=== PATIENT | female | born 1990 | race Caucasian/White ===

== ENCOUNTER 2017-05-03 07:42 | Emergency (ER) | payer SELFPAY ==
[~2017-05-03] VITALS: Wt 104.3 kg
[~2017-05-03 07:42] MED LIST: ANAPROX DS550 MG PO; CELEXA20 MG PO; FLEXERIL10 MG PO; GLUCOPHAGE500 MG PO; MOTRIN800 MG PO; NKHM; NORFLEX100 MG PO; PREDNICOT20 MG PO; ROBAXIN750 MG PO; TRAMADOL HCL50 MG PO; VOLTAREN50 M1 PO; VOLTAREN50 MG PO; ZOFRAN4 MG PO; [UNRECOGNIZED DRUG - REMARK]; [UNRECOGNIZED DRUG - REMARK]
[2017-05-03] MEDS ORDERED: PREDNISONE50 MG PO (09:34)
== END 2017-05-03 09:38 | disposition home or self-care (01) ==
LOC: ED 07:42
DX: M54.32 Sciatica, left side (principal); R51 Headache; F17.200 Nicotine dependence, unspecified, uncomplicated

== ENCOUNTER 2017-09-14 16:09 | Emergency (ER) | payer OTHER ==
[~2017-09-14] VITALS: Ht 170.1 cm; Wt 104.3 kg
[~2017-09-14 16:09] MED LIST changes: +PREDNISONE50 MG PO
[2017-09-14] MEDS ORDERED: PREDNISONE20 M1 PO (16:26)
== END 2017-09-14 17:00 | disposition home or self-care (01) ==
LOC: ED 16:09
DX: R59.1 Generalized enlarged lymph nodes (principal); F17.200 Nicotine dependence, unspecified, uncomplicated

== ENCOUNTER 2018-11-02 18:35 | Emergency (ER) | payer SELFPAY ==
[~2018-11-02] VITALS: Ht 170.1 cm; Wt 99.8 kg
[~2018-11-02 18:35] MED LIST changes: +PREDNISONE20 M1 PO
== END 2018-11-02 19:12 | disposition home or self-care (01) ==
LOC: ED 18:35
DX: H10.9 Unspecified conjunctivitis (principal)

== ENCOUNTER 2018-12-05 13:33 | Emergency (ER) | payer SELFPAY ==
[~2018-12-05] VITALS: Ht 170.1 cm; Wt 104.3 kg
--- NOTE | ~2018-12-05 | EKG ---
[place], [place] ELECTROCARDIOGRAM REPORT NAME: EMELINA MORRISSEY UNIT #: [id number] ROOM: DOCTOR: RAMBO DRAFT REPORT BIRTHDATE: [birth year] [facility] Test Date: 2018-12-05 Test Time: 13:38:12 Pat Name: EMELINA MORRISSEY Department: Room: Gender: F Technology Assistant: : 1990 Requested By: REKHA VAUGHAN Order Number: [id number] Reading MD: Mykel Chicas MD Measurements Intervals [place] Rate: 89 P: 24 ME: 177 QRS: 50 QRSD: 88 T: 44 QT: 365 QTc: 445 Interpretive Statements Sinus rhythm Baseline wander in lead(s) V6 No previous ECG available for comparison Electronically Signed On 12-05-2018 17:29:14 PST by Mykel Chicas MD CM:EKGRPT:ELECTROCARDIOGRAM REPORT [id number] REKHA MORELOS DRAFT REPORT REKHA VAUGHAN DO
[2018-12-05 13:56] LABS: BASO % 0.6 % (0.0-1.0); EOS # 0.1 10*3/uL (0.0-0.4); EOS % 1.4 % (1.0-4.0); HEMATOCRIT 40.7 % (37.0-47.0); LYMPH # 2.3 10*3/uL (1.3-4.4); LYMPH % 31.7 % (27.0-41.0); MEAN CELL VOLUME 86.6 fl (81.0-99.0); MEAN CORPUSCULAR HGB 29.8 pg (27.0-31.0); MEAN CORPUSCULAR HGB CONC 34.4 g/dl (33.0-37.0); MEAN PLATELET VOLUME 10.4 fl (9.6-12.3); MONO # 0.5 10*3/uL (0.1-1.0); MONO % 7.1 % (3.0-9.0); NEUT # 4.2 10*3/uL (2.3-7.9); NEUT % 58.9 % (47.0-73.0); PLATELET COUNT AUTOMATED 284 10*3/uL (130-400); RED CELL DISTRI WIDTH 12.5 % (0-14.5); WHITE BLOOD COUNT 7.2 10*3/uL (4.8-10.8)
[2018-12-05 14:41] LABS: ACT PARTIAL THROMBO TIME 23.1 SECONDS (20.8-31.5)
[2018-12-05 14:45] LABS: ALBUMIN 3.6 gm/dl (3.1-4.5); ALKALINE PHOSPHATASE 46 U/L (45-117); BUN 11 mg/dl (7-24); CHLORIDE 109 mmol/L (98-107); CREATININE 0.61 mg/dL (0.55-1.02); POTASSIUM 3.7 mmol/L (3.5-5.1); SGOT/AST 14 IU/L (3-35); SGPT/ALT 36 U/L (12-78); SODIUM 141 mmol/L (136-145); TOTAL PROTEIN 6.9 gm/dL (6.4-8.2)
[2018-12-05 15:00] LABS: TROPONIN I < 0.015 ng/ml (<0.045)
[2018-12-05] MEDS ORDERED: AUGMENTIN 875875 MG PO (15:52)
[2019-01-15] MEDS ORDERED: CLARITIN10 MG PO (06:02)
[2019-01-15] MEDS ORDERED: AMOXICILLIN500 M2 PO (06:02)
== END 2018-12-05 16:02 | disposition home or self-care (01) ==
LOC: ED 13:33
PROVIDERS: Emergency Medicine
DX: H66.93 Otitis media, unspecified, bilateral (principal); R51 Headache; R06.02 Shortness of breath; R07.9 Chest pain, unspecified; F17.200 Nicotine dependence, unspecified, uncomplicated

== ENCOUNTER 2019-04-29 14:59 | Emergency (ER) | payer OTHER ==
[~2019-04-29] VITALS: Ht 170.1 cm; Wt 113.4 kg
[~2019-04-29 14:59] MED LIST changes: +AMOXICILLIN500 M2 PO; +AUGMENTIN 875875 MG PO; +CLARITIN10 MG PO
== END 2019-04-29 17:28 | disposition home or self-care (01) ==
LOC: ED 14:59
DX: S82.402A Unspecified fracture of shaft of left fibula, initial encounter for closed fracture (principal); X50.1XXA Overexertion from prolonged static or awkward postures, initial encounter; Y93.89 Activity, other specified; Y92.89 Other specified places as the place of occurrence of the external cause; Y99.8 Other external cause status

== ENCOUNTER 2019-11-08 11:07 | Emergency (ER) | payer SELFPAY ==
[~2019-11-08] VITALS: Ht 172.7 cm; Wt 120.7 kg
[2019-11-08 11:36] LABS: BILIRUBIN NEGATIVE (NEGATIVE); BLOOD NEGATIVE (NEGATIVE); CLARITY SL CLOUDY (CLEAR); COLOR YELLOW (YELLOW); GLUCOSE NEGATIVE (NEGATIVE); KETONE NEGATIVE (NEGATIVE); LEUKO ESTERASE NEGATIVE (NEGATIVE); NITRITE NEGATIVE (NEGATIVE); SPECIFIC GRAVITY 1.015 (1.005-1.030); UROBILINOGEN 0.2 E.U./dl (0.2-1.0)
[2019-11-08 11:53] LABS: BACTERIA 2+; WBC 0-2 wbc/hpf (0-5)
== END 2019-11-08 13:15 | disposition home or self-care (01) ==
LOC: ED 11:07
PROVIDERS: Nurse Practitioner Family
DX: N91.2 Amenorrhea, unspecified (principal); R79.1 Abnormal coagulation profile; Z32.02 Encounter for pregnancy test, result negative

== ENCOUNTER 2022-02-22 20:36 | Emergency (ER) | payer OTHER ==
[~2022-02-22] VITALS: Ht 172.7 cm; Wt 113.4 kg
== END 2022-02-22 23:10 | disposition left against medical advice (07) ==
LOC: ED 20:36
DX: R07.81 Pleurodynia (principal)

== ENCOUNTER 2022-10-15 09:42 | Emergency (ER) | payer OTHER ==
[~2022-10-15] VITALS: Ht 170.1 cm; Wt 117.9 kg
== END 2022-10-15 12:45 | disposition home or self-care (01) ==
LOC: ED 09:42
DX: R51.9 Headache, unspecified (principal)

== ENCOUNTER → 2022-12-29 | Outpatient (CLI) | payer OTHER ==
[2022-12-29 12:05] LABS: BASO # 0.1 10*3/uL (0.0-0.1); BASO % 0.6 % (0.0-1.0); EOS # 0.3 10*3/uL (0.0-0.4); EOS % 2.9 % (1.0-4.0); HEMATOCRIT 41.6 % (37.0-47.0); LYMPH # 1.9 10*3/uL (1.3-4.4); LYMPH % 22.5 % (27.0-41.0); MEAN CELL VOLUME 85.4 fl (81.0-99.0); MEAN CORPUSCULAR HGB 28.7 pg (27.0-31.0); MEAN CORPUSCULAR HGB CONC 33.7 g/dl (33.0-37.0); MEAN PLATELET VOLUME 10.2 fl (9.6-12.3); MONO # 0.4 10*3/uL (0.1-1.0); NEUT # 5.8 10*3/uL (2.3-7.9); NEUT % 68.6 % (47.0-73.0); PLATELET COUNT AUTOMATED 330 10*3/uL (130-400); RED BLOOD COUNT 4.87 10*6/uL (4.10-5.10); WHITE BLOOD COUNT 8.5 10*3/uL (4.8-10.8)
[2022-12-29 12:23] LABS: ALKALINE PHOSPHATASE 53 U/L (46-116); BUN 10 mg/dl (9-23); CHLORIDE 107 mmol/L (98-107); CHOLESTEROL 160 mg/dL (<200); LDL CHOLESTEROL 103 mg/dL (9-159); POTASSIUM 3.7 mmol/L (3.4-5.1); SGPT/ALT 25 U/L (10-49); THYROID STIM HORMONE (HS) 1.018 uIU/ml (0.550-4.780); TOTAL PROTEIN 6.7 gm/dL (6.0-8.0); TRIGLYCERIDES 108 mg/dl (<150)
== END | disposition home or self-care (01) ==
LOC: LAB 11:45
PROVIDERS: ATTEND Nurse Practitioner
DX: Z51.81 Encounter for therapeutic drug level monitoring (principal); Z79.899 Other long term (current) drug therapy

== ENCOUNTER 2023-06-13 08:48 | Emergency (ER) | payer OTHER ==
[~2023-06-13] VITALS: Wt 125.2 kg
== END 2023-06-13 11:16 | disposition home or self-care (01) ==
LOC: ED 08:48
DX: S63.502A Unspecified sprain of left wrist, initial encounter (principal); Z79.2 Long term (current) use of antibiotics; Z79.899 Other long term (current) drug therapy; W19.XXXA Unspecified fall, initial encounter; Y93.89 Activity, other specified; Y92.89 Other specified places as the place of occurrence of the external cause; Y99.8 Other external cause status

== ENCOUNTER 2023-09-08 11:31 | Emergency (ER) | payer OTHER ==
[~2023-09-08] VITALS: Wt 132.9 kg
[2023-09-08 12:18] LABS: BASO % 0.8 % (0.0-1.0); EOS # 0.1 10*3/uL (0.0-0.4); EOS % 1.8 % (1.0-4.0); HEMATOCRIT 40.8 % (37.0-47.0); LYMPH # 1.4 10*3/uL (1.3-4.4); LYMPH % 28.7 % (27.0-41.0); MEAN CELL VOLUME 88.1 fl (81.0-99.0); MEAN CORPUSCULAR HGB 29.8 pg (27.0-31.0); MEAN CORPUSCULAR HGB CONC 33.8 g/dl (33.0-37.0); MONO # 0.3 10*3/uL (0.1-1.0); MONO % 6.1 % (3.0-9.0); NEUT # 3.1 10*3/uL (2.3-7.9); NEUT % 62.2 % (47.0-73.0); PLATELET COUNT AUTOMATED 263 10*3/uL (130-400); RED BLOOD COUNT 4.63 10*6/uL (4.10-5.10); RED CELL DISTRI WIDTH 14.4 % (0-14.5); WHITE BLOOD COUNT 4.9 10*3/uL (4.8-10.8)
[2023-09-08 12:29] LABS: ACT PARTIAL THROMBO TIME 25.4 SECONDS (20.0-32.1)
[2023-09-08 12:58] LABS: ALKALINE PHOSPHATASE 54 U/L (46-116); BUN 8 mg/dl (9-23); CHLORIDE 109 mmol/L (98-107); LIPASE 24 U/L (12-53); POTASSIUM 3.8 mmol/L (3.4-5.1); SGPT/ALT 53 U/L (10-49); TOTAL PROTEIN 6.4 gm/dL (6.0-8.0)
== END 2023-09-08 14:20 | disposition home or self-care (01) ==
LOC: ED 11:31
PROVIDERS: Nurse Practitioner Family
DX: K64.9 Unspecified hemorrhoids (principal); R10.11 Right upper quadrant pain

== ENCOUNTER → 2023-09-19 | Outpatient (CLI) | payer OTHER ==
[2023-09-19 16:22] LABS: HEMATOCRIT 42.9 % (37.0-47.0); MEAN CELL VOLUME 88.3 fl (81.0-99.0); MEAN CORPUSCULAR HGB 30.7 pg (27.0-31.0); MEAN CORPUSCULAR HGB CONC 34.7 g/dl (33.0-37.0); MEAN PLATELET VOLUME 9.8 fl (9.6-12.3); RED BLOOD COUNT 4.86 10*6/uL (4.10-5.10); RED CELL DISTRI WIDTH 14.2 % (0-14.5); WHITE BLOOD COUNT 5.7 10*3/uL (4.8-10.8)
[2023-09-19 17:06] LABS: ALKALINE PHOSPHATASE 61 U/L (46-116); BUN 10 mg/dl (9-23); CHLORIDE 107 mmol/L (98-107); CHOLESTEROL 159 mg/dL (<200); LDL CHOLESTEROL 97 mg/dL (9-159); LIPASE 24 U/L (12-53); POTASSIUM 3.7 mmol/L (3.4-5.1); SGPT/ALT 53 U/L (5-49); TOTAL PROTEIN 7.2 gm/dL (6.0-8.0); TRIGLYCERIDES 131 mg/dl (<150)
[2023-09-20 08:10] LABS: HEPATITIS A AB, TOTAL Negative (Negative); IMMUNOGLOBULIN G, QNT 869 mg/dL (586-1602)
[2023-09-20 10:07] LABS: HBSAG Negative (Negative); HEP B CORE AB, IGM Negative (Negative); HEPATITIS C ANTIBODY Non Reactive (Non Reactive)
[2023-09-20 16:08] LABS: ANTI-SMOOTH MUSCLE ANTIBODY 3 Units (0-19); t-TRANSGLUTAMINASE (tTG) IGA <2 U/mL (0-3)
== END | disposition home or self-care (01) ==
LOC: LAB 15:19
PROVIDERS: ATTEND Nurse Practitioner Family
DX: R19.7 Diarrhea, unspecified (principal); K92.1 Melena

== ENCOUNTER → 2023-09-21 | Outpatient (CLI) | payer OTHER | END | disposition home or self-care (01) | LOC: LAB 11:38 | PROVIDERS: ATTEND Nurse Practitioner Family | DX: R19.7 Diarrhea, unspecified (principal); K92.1 Melena ==

== ENCOUNTER → 2025-03-27 | Outpatient (CLI) | payer MEDICARE | END | disposition home or self-care (01) | LOC: ORTHO 03:28 | PROVIDERS: ATTEND Orthopaedic Surgery | DX: M25.532 Pain in left wrist (principal) ==

== ENCOUNTER → 2025-04-04 | Day surgery (SDC) | payer MEDICARE ==
[~2025-04-04] VITALS: Ht 170.1 cm; Wt 113.4 kg
[~2025-04-04] MED LIST changes: +BUPivacaine 0.5% 10 ML VIAL ONE; +Lactated Ringer's Solution 0 ML IV ONE; +Lactated Ringer's Solution 500 ML IV ONE; +Lidocaine Hydrochloride 2% 5 ML SDV IM ONE; +Lidocaine Hydrochloride 5 ML AMP ONE; +Midazolam Hydrochloride 2 MG/2 ML VIAL IV ONE; +Ondansetron Hydrochloride 4 MG/2 ML VIAL IV ONE; +PROPOFOL 200 MG/20 ML VIAL IV ONE; +ceFAZolin sodium/sodium chlor 1 GM/10 ML SYR IV ONE; +ceFAZolin sodium/sodium chlor 20 ML IV ONE; +fentaNYL CITRATE 100 MCG/2 ML VIAL IV ONE
[2025-04-04 07:54] VITALS: BP 126/65
[2025-04-04 08:53] VITALS: BP 106/44
[2025-04-04 09:08] VITALS: BP 117/69
[2025-04-04 09:24] VITALS: BP 110/62
== END | disposition home or self-care (01) ==
LOC: SDC 04-02 09:30
PROVIDERS: ATTEND Orthopaedic Surgery
DX: G56.03 Carpal tunnel syndrome, bilateral upper limbs (principal); K21.9 Gastro-esophageal reflux disease without esophagitis; F41.9 Anxiety disorder, unspecified; M79.7 Fibromyalgia; M25.532 Pain in left wrist; F31.9 Bipolar disorder, unspecified; F25.9 Schizoaffective disorder, unspecified; F17.210 Nicotine dependence, cigarettes, uncomplicated; Z98.890 Other specified postprocedural states; Z79.899 Other long term (current) drug therapy

== ENCOUNTER → 2025-05-09 | Day surgery (SDC) | payer MEDICARE ==
[~2025-05-09] VITALS: Ht 170.1 cm; Wt 113.4 kg
[~2025-05-09] MED LIST changes: +ACETAMINOPHEN 100 ML IV ONE; +Ketorolac Tromethamine 30 MG/ML VIAL IV ONE; -Lactated Ringer's Solution 0 ML IV ONE; -Lactated Ringer's Solution 500 ML IV ONE; -Lidocaine Hydrochloride 2% 5 ML SDV IM ONE; +Lidocaine Hydrochloride 5 ML VIAL IV ONE; +SODIUM CHLORIDE 0.9% 1,000 ML IV ONE; +SODIUM CHLORIDE 0.9% 100 ML IV ONE; -ceFAZolin sodium/sodium chlor 1 GM/10 ML SYR IV ONE; +dexmedeTOMIDine HCL 200 MCG/2 ML VIAL IV ONE
[2025-05-09 06:53] VITALS: BP 98/65
[2025-05-09 08:12] VITALS: BP 97/51
[2025-05-09 08:27] VITALS: BP 85/47
[2025-05-09 08:42] VITALS: BP 88/54
== END | disposition home or self-care (01) ==
LOC: SDC 05-07 08:00
PROVIDERS: ATTEND Orthopaedic Surgery
DX: G56.03 Carpal tunnel syndrome, bilateral upper limbs (principal); K21.9 Gastro-esophageal reflux disease without esophagitis; F41.9 Anxiety disorder, unspecified; F32.A Depression, unspecified; F17.210 Nicotine dependence, cigarettes, uncomplicated; F10.90 Alcohol use, unspecified, uncomplicated; F12.90 Cannabis use, unspecified, uncomplicated; Z91.040 Latex allergy status; Z91.041 Radiographic dye allergy status; Z98.890 Other specified postprocedural states; Z79.899 Other long term (current) drug therapy

== ENCOUNTER 2025-05-20 10:15 | Emergency (ER) | payer MEDICARE, MEDICAID ==
[~2025-05-20 10:15] MED LIST changes: -ACETAMINOPHEN 100 ML IV ONE; -BUPivacaine 0.5% 10 ML VIAL ONE; -Ketorolac Tromethamine 30 MG/ML VIAL IV ONE; -Lidocaine Hydrochloride 5 ML AMP ONE; -Lidocaine Hydrochloride 5 ML VIAL IV ONE; -Midazolam Hydrochloride 2 MG/2 ML VIAL IV ONE; -Ondansetron Hydrochloride 4 MG/2 ML VIAL IV ONE; -PROPOFOL 200 MG/20 ML VIAL IV ONE; -SODIUM CHLORIDE 0.9% 1,000 ML IV ONE; -SODIUM CHLORIDE 0.9% 100 ML IV ONE; -ceFAZolin sodium/sodium chlor 20 ML IV ONE; -dexmedeTOMIDine HCL 200 MCG/2 ML VIAL IV ONE; -fentaNYL CITRATE 100 MCG/2 ML VIAL IV ONE
== END 2025-05-20 11:40 | disposition left against medical advice (07) ==
LOC: ED 10:15
DX: K08.89 Other specified disorders of teeth and supporting structures (principal); Z53.21 Procedure and treatment not carried out due to patient leaving prior to being seen by health care provider

== ENCOUNTER 2025-10-03 14:26 | Emergency (ER) | payer MEDICARE, MEDICAID ==
[~2025-10-03] VITALS: Wt 122.5 kg
== END 2025-10-03 17:04 | disposition left against medical advice (07) ==
LOC: ED 14:26
DX: R07.89 Other chest pain (principal); M54.9 Dorsalgia, unspecified; R22.31 Localized swelling, mass and lump, right upper limb; R22.32 Localized swelling, mass and lump, left upper limb; Z53.21 Procedure and treatment not carried out due to patient leaving prior to being seen by health care provider

== ENCOUNTER → 2025-10-03 | Outpatient (CLI) | payer MEDICARE, MEDICAID | END | disposition home or self-care (01) | LOC: US 03:27 | PROVIDERS: ATTEND Nurse Practitioner Family | DX: N63.10 Unspecified lump in the right breast, unspecified quadrant (principal); N64.4 Mastodynia ==